=== PATIENT | male | born 1980 | race Caucasian/White ===

== ENCOUNTER 2025-04-13 08:48 | Day surgery (SDC) | payer BC ==
--- NOTE | 2025-04-06 12:01 | ELECTROCARDIOGRAPH REPORT ---
[facility] Test Date: 2025-04-06 Test Time: 11:59:29 Pat Name: TIM DANIEL Department: [facility]-PRE-OP Patient ID: [id number] Room: Gender: M [employer]: pipo : 1980 Requested By: ISREAL CLEMENT Order Number: [id number] Reading MD: Dr. Jorden Phelan Measurements Intervals [place] Rate: 71 P: 77 OK: 199 QRS: 86 QRSD: 94 T: 68 QT: 361 QTc: 393 Interpretive Statements Sinus rhythm ST elev, probable normal early repol pattern Electronically Signed On 04-07-2025 13:23:[address] Jorden Phelan Please click the below link to view image of tracing.
[2025-04-06 12:13] LABS: MEAN PLATELET VOLUME 7.4 FL (7.4-10.4); PRE OP HEMATOCRIT 45.2 % (42.0-52.0); PRE OP HEMOGLOBIN 15.0 g/dL (14.0-17.9); PRE OP PLATELET COUNT 288 X10'3 (140-440); PRE OP WHITE BLOOD COUNT 5.8 10'3 (4.8-10.8); RED CELL DISTRIBUTION WIDTH 14.2 % (11.5-14.5)
[2025-04-06 12:40] LABS: CREATININE 1.09 MG/DL (0.60-1.10); PRE OP ALT 32 U/L (30-65); PRE OP ANION GAP 6 (8-16); PRE OP AST 19 U/L (10-37); PRE OP BILIRUB, TOTAL 0.3 MG/DL (0.0-1.0); PRE OP GLUCOSE 114 MG/DL (70-104); PRE OP POTASSIUM 4.2 MMOL/L (3.4-5.1); PRE OP SODIUM 141 MMOL/L (135-145); TOTAL CARBON DIOXIDE 29.4 MMOL/L (24-32); eGFR 73 ML/MIN
[~2025-04-13] VITALS: Ht 168.9 cm; Wt 88.1 kg
[2025-04-13] VITALS (8 sets, daily range): BP systolic 101–141; BP diastolic 60–79; PULSE 57–78; RESP 12–18; TEMP 98.7; O2SAT 95–99
[2025-04-13] MEDS: ceFAZolin 2gm/dext,iso 50mL 50 ML IV ONE (05:30)
[~2025-04-13 08:48] MED LIST: CHOL500050 PO; COLL1CAP PO; LISI20TA28 PO; LORA10TA7 PO; MAGN100T PO; MULT-1085 PO; OMEG-166 PO; RED1000P PO; TEST200V22 IM; TRIPHALA PO
[2025-04-13] MEDS ORDERED: fentaNYL/PF 50MCG/1 ML 2ML syringe IV PRN ×2 (09:25)
[2025-04-13] MEDS ORDERED: morphine 4 MG/ML inj SYRINge IV PRN (09:25)
[2025-04-13] MEDS ORDERED: ringers solution, lacted 1,000 ML IV SCH (09:25)
[2025-04-13] MEDS ORDERED: labetalol 20mg/4ml (5mg/ml) syringe IV PRN (09:25)
[2025-04-13] MEDS ORDERED: ondansetron/PF 4mg/2ml inj IV PRN (09:25)
[2025-04-13] MEDS ORDERED: hydrALAZINE 20mg/ml inj. IV PRN (09:25)
[2025-04-13] MEDS: ringers solution, lacted 1,000 ML IV SCH (09:42)
[2025-04-13] MEDS ORDERED: dexamethasone 4mg/ml inj ONE (10:10)
[2025-04-13] MEDS ORDERED: fentaNYL/PF 50MCG/1 ML 2ML syringe ONE (10:14)
--- NOTE | 2025-04-13 10:14 | HISTORY AND PHYSICAL ---
History & Physical Providers to CC CC: ISREAL CLEMENT MD ~ History of Present Illness Reason for Admit\Complaint: Left inguinal hernia History of Present Illness Interval history and physical exam Patient was seen in my office just over a year ago He was referred with bilateral testicular pain and intermittent left groin pain Testicular ultrasound was negative, however, he had an incidental left inguinal hernia was noted He is still having symptoms, but has yet to see a significant bulge in the left groin With persistent symptoms he would like to proceed with the surgical intervention He is here today for elective repair of his left inguinal hernia He denies any change in his past medical history since he was seen in my office last (please see previous history and physical exam for all pertinent details) Allergies: Coded Allergies: No Known Allergies (Unverified , 10/28/15) Home Medications Home Medications Active Reported Testosterone Enanthate 200 Mg/Ml Vial 200 Mg IM Q2W Vitamin D3 (Cholecalciferol (Vitamin D3)) 125 Mcg (5000 Unit) Capsule 1 Cap PO DAILY Mag Glycinate (Magnesium Glycinate) 100 Mg Tablet 260 Mg PO DAILY Collagen 1500 Plus C Capsule (Collagen/Biotin/Ascorbic Acid) 500 Mg-800 Mcg-50 Mg Capsule 1,000 Mg PO BID Multi Vitamin Daily (Multivitamin) 1 Each Tablet 1 Tab PO DAILY Fish Oil 1,000 Mg Ec Softgel (Berne-3/Dha/Epa/Fish Oil) 300 Mg-1,000 Mg Capsule.dr 1 Cap PO DAILY [Triphala] 1,000 Mg PO DAILY Red Yeast Rice Extract 1,000 Gm Powder 1,200 Mg PO DAILY Loratadine 10 Mg Tablet 1 Tab PO DAILY Lisinopril 20 Mg Tablet 1 Tab PO DAILY ROS ROS Reviewed and negative with the exception of orchalgia and intermittent left groin pain Exam General: 45-year-old male in no acute distress Chest: Lungs are clear to auscultation bilaterally Cardiovascular: Regular rate and rhythm without murmurs Abdomen: Soft and nondistended No palpable masses Left side of the lower abdomen marked with indelible ink Extremities: Well-perfused without edema Problems: (1) Orchalgia (2) Left inguinal hernia Assessment & Plan: The risks, benefits, and alternatives to a robotic assisted, laparoscopic left possible right inguinal hernia repair with mesh were discussed with the patient. Risks include, but are not limited to, bleeding, infection, injury to intra-abdominal structures, hernia recurrence and persistent/chronic postoperative pain including his ongoing orchalgia. Patient verbalized understanding and wishes to proceed with surgery. We will do so today as scheduled Problem Qualifiers (1) Orchalgia: Laterality: right Qualified Codes: N50.811 - Right testicular pain ISREAL CLEMENT MD Apr 13, 2025 10:14
[2025-04-13] MEDS ORDERED: glycopyrrolate 0.2mg/ml inj ONE (10:15)
[2025-04-13] MEDS ORDERED: LIDOcaine 1%/PF 5ML 10 MG/ML VIAL ONE (10:15)
[2025-04-13] MEDS ORDERED: ondansetron/PF 4mg/2ml inj ONE (10:15)
[2025-04-13] MEDS ORDERED: midazolam 1 mg/ML 2ml injection ONE (10:15)
[2025-04-13] MEDS ORDERED: propofol inj 20 ML IV ONE (10:15)
[2025-04-13] MEDS ORDERED: rocuronium 10mg/ml inj IV ONE (10:15)
[2025-04-13] MEDS ORDERED: acetaminophen 1,000mg/100ml IV 100 ML IV ONE (10:16)
[2025-04-13] MEDS ORDERED: LIDOcaine 1% 30ml preserv. free vial ONE (10:20)
[2025-04-13] MEDS ORDERED: BUPIVAcaine 2.5mg/ml inj 50ml vial (contains preservative) ONE (10:20)
[2025-04-13] MEDS ORDERED: HYDROcodone/acetaminophen 5mg/325mg tablet PO PRN (12:05)
--- NOTE | 2025-04-13 12:07 | OPERATIVE REPORT ---
Operative Report Providers to CC: OSVALDO CLEMENT MD ~ Date of Procedure: Apr 13, 2025 Pre-Operative Diagnosis: Left inguinal hernia Post-Operative Diagnosis SAME as PRE-Op Procedure Performed Robotic assisted, laparoscopic left inguinal hernia repair with mesh Surgeon: Ovsaldo Clement MD FACS Axle Turner None Anesthesiologist: Bryson Rojas Type of Anesthesia: General Findings: Small indirect left inguinal hernia Wound Class I Complications None Prosthetics\Implants used: Extra-large left Dextile mesh Estimated Blood Loss: Minimal Specimen Removed: None Description of Procedure: Patient was brought to the operating room and identified by the nursing staff and the attending physician. Patient was placed supine and general anesthesia was induced. Patient's abdomen was prepped and draped in standard sterile fashion. Preoperative antibiotics were given. Supraumbilical incision was made to allow for standard Beaver entry technique. Laparoscope was inserted after insufflation. Bilateral, 8.5 mm robotic trochars were placed under laparoscopic guidance following administration of local anesthetic. The [employer] robotic arm was docked to the patient and instruments placed intra-abdominally under laparoscopic visualization. The right hemipelvis was examined and showed no evidence of right inguinal hernia. Preperitoneal flap was created and carried down to the symphysis pubis. The retropubic space of Retzius was developed and the bladder swept medially. Dissection was carried out laterally until an indirect hernia sac was identified. This was very small in size. Hernia sac was completely mobilized and reduced. There was a cord lipoma that was also mobilized away from the cord and reduced. This was excised, set aside, and later removed to be discarded. Peritoneum was completely dissected away from the cord structures The critical view of the myopectineal orifice was achieved. Dissection was carried out la terally to allow space for mesh deployment. An extra-large left Dextile mesh and suture was passed intra-abdominally. Mesh was laid in the preperitoneal space covering both indirect, direct, and potential femoral and obturator hernias. Mesh laid without wrinkles or folds. 3 tacking sutures using 0 Ethibond were used to fix the mesh at the symphysis pubis, rectus abdominis, and just anterior to the anterior superior iliac spine. The peritoneal rent was then closed with running, 2/0, absorbable locking mckeon ture. [place] were retrieved. Abdomen was deflated and secondary trochars removed. Fascia at the umbilical port site was closed with 0 Vicryl sutures. Skin incisions were closed with 4-0 Monocryl sutures in a subcuticular fashion. Sterile dressings were applied. Patient was awakened and taken to the postanesthesia care unit in stable condition. Counts repoted as correct: Yes OSVALDO CLEMENT MD Apr 13, 2025 12:07
== END 2025-04-13 12:52 | disposition home or self-care (01) ==
LOC: PAS 08:48
PROVIDERS: ATTEND Surgery
DX: K40.90 Unilateral inguinal hernia, without obstruction or gangrene, not specified as recurrent (principal); I10 Essential (primary) hypertension; G47.33 Obstructive sleep apnea (adult) (pediatric); F17.210 Nicotine dependence, cigarettes, uncomplicated; Z79.890 Hormone replacement therapy; Z79.899 Other long term (current) drug therapy; Z90.89 Acquired absence of other organs; Z98.818 Other dental procedure status; Z98.890 Other specified postprocedural states
CPT/HCPCS: 36415; 49650; 80053; 82948; 85025; 93005; C1781; J0131; J1100; J2003; J2250; J2405; J2704; J3010; J3490; J7030; J7120; S2900; Z7506; Z7508; Z7512; A4215; A4618